=== PATIENT | female | born 1990 | race Hispanic/Latino ===

== ENCOUNTER 2021-10-10 22:51 | Emergency (ER) | payer MEDICAID ==
[2021-10-11] MEDS ORDERED: Boostrix 0.5 ML (Tdap) VIAL ONE (00:28)
[2021-10-11] MEDS ORDERED: Bacitracin 1 PK ONE (02:20)
== END 2021-10-11 02:34 | disposition home or self-care (01) ==
LOC: CSHERS 22:51
DX: O9A.213 Injury, poisoning and certain other consequences of external causes complicating pregnancy, third trimester (principal); S01.81XA Laceration without foreign body of other part of head, initial encounter; S13.4XXA Sprain of ligaments of cervical spine, initial encounter; X58.XXXA Exposure to other specified factors, initial encounter
CPT/HCPCS: 12011; 70450; 72125; 90471; 90715